=== PATIENT | male | born 1935 | race Caucasian/White ===

== ENCOUNTER 2021-11-26 15:01 | Emergency (ER) | payer MEDICARE ==
[~2021-11-26] VITALS: Ht 170.2 cm; Wt 82.0 kg
[2021-11-26] MEDS ORDERED: KETOROLAC 30MG/ML VIAL IV STA (15:34)
[2021-11-26] MEDS ORDERED: LIDOCAINE HCL/EPINEPHRINE 1%-EPI 1:100,000 10 ML VIAL INFIL NR (15:45)
[2021-11-26] MEDS ORDERED: TETANUS, DIPHTHERIA, PERTUSSIS VAC/PF 0.5ML (>10YR OLD) IM ONE (15:45)
[2021-11-26] MEDS ORDERED: SODIUM CHLORIDE 0.9% 1,000 ML IV ONE (15:45)
[2021-11-26] MEDS ORDERED: LIDOCAINE HCL/EPINEPHRINE 1%-EPI 1:100,000 20 ML VIAL INFIL ONE (15:45)
[2021-11-26] MEDS ORDERED: IBUP-2028 MT (17:23)
[2021-11-26 17:35] VITALS: BP 132/60
== END 2021-11-26 17:45 | disposition home or self-care (01) ==
LOC: ER 15:01
DX: S62.111A Displaced fracture of triquetrum [cuneiform] bone, right wrist, initial encounter for closed fracture (principal); W18.39XA Other fall on same level, initial encounter; Y93.89 Activity, other specified; Y92.89 Other specified places as the place of occurrence of the external cause; Y99.8 Other external cause status; I10 Essential (primary) hypertension; Z85.6 Personal history of leukemia
CPT/HCPCS: 12011; 73110; 73130; 90715; 96372; 96374; 99284; J1885; J3490; J7030; A4565